=== PATIENT | female | born 1990 | race Caucasian/White ===

== ENCOUNTER 2019-08-04 13:53 | Inpatient (IN) | payer BC ==
[~2019-08-04] VITALS: Ht 152.4 cm; Wt 81.4 kg
[2019-08-04] VITALS (15 sets, daily range): BP systolic 104–132; BP diastolic 55–90; PULSE 71–107; TEMP 98.9–99.5
--- NOTE | 2019-08-04 20:00 | NUR ---
G1 at 41 weeks and 1 day arrives to unit ambulatory for scheduled induction. Pt changed into clean gown, oriented to room, call light within reach, bed in low and locked position. Pt reports feeling good movement, denies LOF or vaginal bleeding. Reports occasional cramping. Pt denies headaches, blurry vision or RUQ pain. US and toco explained and applied. Vital signs obtained. SVE closed/50/-3. Plan of care reviewed with patient and spouse. Admission assessment started.
--- NOTE | 2019-08-04 20:20 | NUR ---
18 G IV started in right wrist with 1 attempt. Admission labs obtained off IV start. Lactated Ringers infusing to gravity.
[2019-08-04 20:49] LABS: BASO % 0.1 % (0.0-2.0); EOS % 0.3 % (0-4.0); GRAN # 6.7 (1.4-6.5); GRAN % 70.7 % (42.2-75.2); HEMATOCRIT 41.6 % (37.0-47.0); LYMPH # 1.9 (1.2-3.4); LYMPH % 19.9 % (20.0-51.0); MEAN CELL VOLUME 96 fl (80.0-100.0); MEAN CORPUSCULAR HEMOGLOBIN 35 pg (27.0-31.0); MEAN CORPUSCULAR HGB CONC 36 g/dl (33.0-37.0); MEAN PLATELET VOLUME 9.9 fl (7.4-10.4); MONO # 0.8 (0.1-0.6); MONO % 8.1 % (1.7-9.3); PLATELET COUNT 290 K/mm3 (130-400); RED BLOOD COUNT 4.34 M/mm3 (4.10-5.30); REDCELL DISTRIBUTION WIDTH-CV 12.3 % (11.5-14.5)
--- NOTE | 2019-08-04 20:50 | NUR ---
Consents reviewed and signed with patient and spouse. All questions answered.
--- NOTE | 2019-08-04 21:00 | NUR ---
Category 1 FHR tracing obtained. Initial dose of PO cytotec given, see MAR.
[2019-08-04] MEDS ORDERED: PRENATAL MVI (21:35)
[2019-08-05] VITALS (52 sets, daily range): BP systolic 93–134; BP diastolic 52–92; PULSE 72–125; TEMP 98–99
--- NOTE | 2019-08-05 01:00 | NUR ---
Category 1 FHR tracing obtained. 2nd dose of PO cytotec given, see MAR.
--- NOTE | 2019-08-05 04:45 | NUR ---
Category 1 FHR tracing. Monitors removed so patient can shower and eat before starting pitocin induction. Reviewed plan of care.
--- NOTE | 2019-08-05 09:00 | NUR ---
Dr. Randle at bedside. SVE per provider CL/50/-3. Decision for section. Pt updated on POC and prepped for surgery. No questions or concerns at this time.
[2019-08-06 00:25] VITALS: BP 109/55; PULSE 87; TEMP 98.3
[2019-08-06 07:52] VITALS: BP 114/68; PULSE 76; TEMP 98.1
[2019-08-06] MEDS ORDERED: MOTRIN 800800 MG/TAB PO (07:54)
[2019-08-06] MEDS ORDERED: PERCOCET 325 MG1 TA2 PO (07:54)
[2019-08-06 15:40] VITALS: BP 114/68; PULSE 82; TEMP 98.1
--- NOTE | 2019-08-06 17:00 | NUR ---
Ibuprofen 800 mg given as ordered.
[2019-08-06 20:00] VITALS: BP 117/63; PULSE 88; TEMP 98.7
[2019-08-07 08:20] VITALS: BP 115/65; PULSE 101; TEMP 97.8
--- NOTE | 2019-08-07 13:35 | NUR ---
Report received from off going RNDena. Care taken over by this RN.
[2019-08-07 16:33] VITALS: BP 113/62; PULSE 95; TEMP 98.2
[2019-08-07 20:00] VITALS: BP 113/74; PULSE 99; TEMP 99.1
[2019-08-08 07:00] VITALS: BP 115/65; PULSE 94; TEMP 98.5
== END 2019-08-08 10:55 | disposition home or self-care (01) | DRG 788 ==
LOC: LDR 13:53 → OB 08-05 11:25
PROVIDERS: ADMIT Obstetrics & Gynecology
PROC: 10D00Z1 Extraction of Products of Conception, Low, Open Approach (ICD-10-PCS; principal; 2019-08-05)
DX: O48.0 Post-term pregnancy (principal); Z3A.41 41 weeks gestation of pregnancy; Z37.0 Single live birth; O76 Abnormality in fetal heart rate and rhythm complicating labor and delivery; O77.0 Labor and delivery complicated by meconium in amniotic fluid; O61.0 Failed medical induction of labor; O99.824 Streptococcus B carrier state complicating childbirth; Z88.0 Allergy status to penicillin; Z88.2 Allergy status to sulfonamides
CPT/HCPCS: J1885; J2270; J2370; J2405; J2540; J2590; J7120

== ENCOUNTER → 2019-08-18 | Outpatient (CLI) | payer BC ==
[~2019-08-18] MED LIST: MOTRIN 800800 MG/TAB PO; PERCOCET 325 MG1 TA2 PO; PRENATAL MVI
--- NOTE | 2019-08-18 12:51 | NUR ---
Pt, Jesusita Dinh, presents for outpatient consult on referral from Dr. Britton due to infant needing supplement and low weights in the first week of life. Infant, Mckenzie Dinh was born on [birth year] by c/section for FTP. Her weight was 7#9.7oz (3450 gms). Pt reports discharge weight was 6#13oz, 08/09/19 was 7#2oz and on 08/13/19 was 7#9oz. Today Mckenzie weighs 7#10.4oz (3470gms) for a gain of only 1.4oz in the last 5 days. has been supplement 1-2oz after each , q 2-3 hours, but supplement was reduced to 5-6 feedings daily after the weight was reassuring on 08/13/19. Pt has not utilizes a breastpump. She denies feeling engorgement but occassionally feels her breasts are a little heavier. Latch appears to be adequate, and after feeding Mckenzie has a weight gain of 1.3oz (36gms). She was actively rooting but pt did not bring supplement and states she will supplement after she gets home. LC evaluates 's oral cavity with a gloved finger. Infant able to extend the tongue across the gum line but her suck is not powerful. A sublingual frenulum is noted although it does not extend to the tip of the tongue, it may restrict mid-tongue movement. Pt denies endocrine, infertility or breast surgical history that may affect milk supply. POC: 3-step feeding plan: ~10 minutes of per side followed by ~2oz supplement (EBM or formula), and then pumping 10-15 min. Also suggested herbal supplements and power pumping to improve milk supply. Handouts provided. Suggested to pt looking into tongue tie with physician or dentist. F/U: Pt to report to this LC after implementing the feeding plan and suggestions to improve milk supply and follow up in office or clinic will be determined at that time. Pt verbalizes understanding, questions invited and answered. POC:
== END ==
LOC: LAC 10:47
DX: Z39.1 Encounter for care and examination of lactating mother (principal); Z71.89 Other specified counseling